=== PATIENT | male | born 1950 | race American Indian/Alaskan Native ===

== ENCOUNTER 2019-02-24 08:19 | Outpatient (CLI) | payer MEDICARE ==
[2019-02-24 09:03] LABS: Blood Urea Nitrogen 14 mg/dL (9-20)
--- NOTE | 2019-02-24 10:44 | Cat Scan Report ---
CTA CHEST WITH CONTRAST INDICATION : I70.0) Atherosclerosis of aorta/R94.31)Abnormal electrocardiogram. TECHNIQUE: Axial imaging performed through the chest, with contrast bolus timing set to maximize opa cification of the pulmonary arteries. Sagittal and coronal reformatted images. 3-plane MIP reformatte d images were obtained. All CT scans at this location are performed using CT dose reduction for ALAR A by means of automated exposure control. 100 mL of intravenous contrast administered. COMPARISON: None FINDINGS: Bolus: Contrast bolus timing is adequate. PTE: No filling defect is present to suggest PTE. Mediastinum: Heart size is at the upper limits of normal. No pericardial abnormality. The aorta is m ildly ectatic but no significant atherosclerotic disease. The ascending aorta measures up to 4.0 cm i n diameter. The aortic arch measures 3.5 cm. The descending thoracic aorta measures 3.3 cm. No focal aneurysm, dissection or atherosclerotic plaques. No pathologic mediastinal adenopathy. The thyroid g land, tracheobronchial tree and esophagus are within normal limits. Lungs: The lungs are clear with no significant parenchymal or interstitial disease. No pleural effus ion or pneumothorax. Bones: Degenerative changes in the spine with nothing acute. Upper abdomen: Limited imaging of the upper abdomen shows nothing acute. IMPRESSION: No evidence for pulmonary embolus. Borderline heart size. The aorta is mildly ectatic with measurements as described above. No significant atherosclerotic plaq ues are identified. Signer Name: Gil Garcia Jr, MD Signed: 02/24/2019 10:40 AM Workstation Name: [id number]
== END 2019-02-24 08:20 | disposition home or self-care (01) ==
LOC: CT 08:19
PROVIDERS: ATTEND Internal Medicine
DX: I70.0 Atherosclerosis of aorta (principal); R94.31 Abnormal electrocardiogram [ECG] [EKG]
CPT/HCPCS: 36415; 71275; 82565; 84520; Q9967